=== PATIENT | male | born 1995 | race American Indian/Alaskan Native ===

== ENCOUNTER 2018-05-09 06:11 | Emergency (ER) | payer BC ==
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
[2018-05-09 07:30] LABS: ANION GAP 16.3
[2018-05-09 07:31] LABS: SODIUM,NA 142 mmol/L (138-146)
[2018-05-09 07:32] LABS: CHLORIDE,CL 103 mmol/L (98-109)
== END 2018-05-09 09:04 | disposition home or self-care (01) ==
LOC: DL.ED 06:11
DX: S00.03XA Contusion of scalp, initial encounter (principal); S10.93XA Contusion of unspecified part of neck, initial encounter; S20.211A Contusion of right front wall of thorax, initial encounter; F17.210 Nicotine dependence, cigarettes, uncomplicated; Y04.2XXA Assault by strike against or bumped into by another person, initial encounter
CPT/HCPCS: 36415; 70490; 71100; 80053; 85025; 99285; G0480

== ENCOUNTER 2022-02-12 23:55 | Emergency (ER) | payer OTHER ==
[2022-02-13] MEDS ORDERED: Lidocaine 1% 30 ML SDV INJECT ONE (00:30)
[2022-02-13] MEDS ORDERED: Bacitracin Oint 1 GM U/D Packet TOP ONE (01:19)
== END 2022-02-13 01:37 | disposition home or self-care (01) ==
LOC: DL.ED 23:55
DX: S61.214A Laceration without foreign body of right ring finger without damage to nail, initial encounter (principal); Z88.1 Allergy status to other antibiotic agents; W25.XXXA Contact with sharp glass, initial encounter
CPT/HCPCS: 12002; 99283; 99283-25